=== PATIENT | male | born 1980 | race Caucasian/White ===

== ENCOUNTER 2017-06-03 03:39 | Inpatient (IN) | payer OTHER ==
[~2017-06-03] VITALS: Ht 177.8 cm; Wt 129.7 kg
[2017-06-03 08:00] VITALS: BP 156/94
[2017-06-03 08:10] VITALS: BP 156/94
--- NOTE | 2017-06-03 08:10 | NUR ---
podiatric surgeonhorse doctor notes Admitted a 37 years old male patient from [facility] via gurney accompanied by 2 EMT's, who came in with diagnosis of Pneumonia. Dr. Bauer called and made aware regarding the admission and admission orders and diet ordered. Patient is alert and oriented x 4, verbally responsive and able to make needs known. Skin assessment done and intact. No complaint of pain or discomfort at this time, nor chest pain. on tele monitor SR heart rate of 74. Ambulatory and tolerated well. On room air and tolerated well. Kept patient clean and comfortable in bed, call light with in patient reach, will continue to monitor accordingly.
[2017-06-03] MEDS ORDERED: IV NS 0.9% 1,000 ML IV PRN (08:34)
[2017-06-03] MEDS ORDERED: ONDANSETRON HCL/PF 4 MG/2 ML VIAL IVP PRN (09:00)
[2017-06-03] MEDS ORDERED: MAG HYDROX/AL HYDROX/SIMETH 30 ML UDC PO PRN (09:00)
[2017-06-03] MEDS ORDERED: ACETAMINOPHEN 325 MG TABLET PO PRN (09:00)
[2017-06-03] MEDS ORDERED: Z GUARD REMEDY 2 OZ OINT TP PRN (09:00)
[2017-06-03] MEDS ORDERED: HYDROCODONE/APAP 10/325MG 1 EA TABLET PO PRN (09:00)
[2017-06-03] MEDS: ALBUTEROL FS 2.5 MG/0.5 ML VIAL.NEB NEB SCH ×2 (09:00→11:07)
[2017-06-03] MEDS ORDERED: MAGNESIUM HYDROXIDE 30 ML UDC PO PRN (09:00)
[2017-06-03] MEDS: IPRATROPIUM NEB FS 0.5 MG/2.5 ML AMPUL.NEB NEB SCH ×2 (09:00→11:07)
--- NOTE | 2017-06-03 09:16 | NUR ---
RT NOTE: PATIENT REFUSED TREATMENT. STATES THAT HE'S NOT IN DISTRESS AND WILL TAKE RESPIRATORY TREATMENT LATER. WILL FOLLOW UP WITH PATIENT FOR THE NEXT SCHEDULED TREATMENT.
[2017-06-03] MEDS ORDERED: DEXAMETHASONE SOD PHOSPHATE 10 MG/ML VIAL IV ONE (09:45)
[2017-06-03] MEDS ORDERED: IV SET PRIMARY PUMP SET 1 EA INFUS.SET MC ONE (09:52)
[2017-06-03] MEDS ORDERED: SECONDARY IV SET 1 EA INFUS.SET MC ONE (09:52)
[2017-06-03] MEDS: AZITHROMYCIN 250 MG TABLET PO SCH (10:06)
[2017-06-03 10:39] LABS: BASOPHILS % (AUTO) 0.3 % (0.0-2.0); EOSINOPHILS # (AUTO) 0.2 /CMM (0.0-0.7); HEMATOCRIT 43 % (39-51); HEMOGLOBIN 14.5 g/dL (13.5-17.5); LYMPHOCYTES # (AUTO) 1.7 /CMM (0.8-4.8); LYMPHOCYTES % (AUTO) 20.4 % (20.0-44.0); MEAN CORPUSCULAR HEMOGLOBIN 32 PG (26.0-33.0); MEAN CORPUSCULAR HGB CONC 34 g/dl (31.0-36.0); MEAN CORPUSCULAR VOLUME 93 fL (80-96); MONOCYTES # (AUTO) 0.9 /CMM (0.1-1.30); NEUTROPHILS # (AUTO) 5.5 /CMM (1.8-8.9); NEUTROPHILS % (AUTO) 66.3 % (43.0-81.0); PLATELET COUNT (AUTO) 253 /CMM (150-450); RDW COEFFICIENT OF VARIATION 14.2 (11.5-15.0); WHITE BLOOD COUNT (AUTO) 8.3 K/uL (4.3-11.0)
--- NOTE | 2017-06-03 11:20 | NUR ---
Pt. reports being jittery after treatment. Dr. Bauer is aware and ordered respiratory treatments to be changed to PRN. Nurse (Juliocesar) aware.
[2017-06-03 12:00] VITALS: BP 148/71
[2017-06-03] MEDS: CEFTRIAXONE 2 G in IV D5W 100 ML IV SCH (12:03)
[2017-06-03 13:06] LABS: CALCIUM, SERUM 8.5 mg/dL (8.5-10.1); CREATININE 0.9 mg/dL (0.6-1.3); POTASSIUM 3.7 mmol/L (3.5-5.1)
[2017-06-03] MEDS: ENOXAPARIN SODIUM 40 MG/0.4 ML DISP.SYRIN SQ SCH (14:03)
[2017-06-03 16:00] VITALS: BP 149/88
[2017-06-03] MEDS ORDERED: ALBUTEROL FS 2.5 MG/0.5 ML VIAL.NEB NEB PRN (16:00)
[2017-06-03] MEDS ORDERED: IPRATROPIUM NEB FS 0.5 MG/2.5 ML AMPUL.NEB NEB PRN (16:00)
--- NOTE | 2017-06-03 19:08 | NUR ---
parking lot attendant and cashier closing notes All needs provided, attended and anticipated. kept patient clean and comfortable in bed, call light with in patient reach, endorsed to next shift RN to continue care. On tele monitor SR heart rate of 81. No complaint of pain or discomfort at this time, nor chest pain.
--- NOTE | 2017-06-03 19:40 | NUR ---
MS RN INITIAL NOTES RECEIVED REPORT FROM DAY SHIFT. PT IS SITTING IN CHAIR WITH FAMILY AT BED SIDE. A/O X3, ABLE TO COMMUNICATE NEEDS. IV ACCESS ON LEFT AC WITH NS @75 ML/HR, IV INTACT AND NO SIGNS OF INFILTRATION. CALL LIGHT WITHIN REACH WILL CONTINUE TO MONITOR PT
[2017-06-03 20:00] VITALS: BP 158/92
--- NOTE | 2017-06-03 21:00 | NUR ---
IV FLUIDS IV FLUIDS WERE PUT ON HOLD. LEFT ARM APPEARED TO BE A LITTLE SWOLLEN, PT DENIES PAIN OR DISCOMFORT. PT BELIEVES THIS IS DUE TO RECEIVING SO MUCH FLUIDS THROUGH IV. NO SIGNS OF INFILTRATION, IV IS INTACT. WILL CONTINUE TO MONITOR
--- NOTE | 2017-06-03 21:40 | NUR ---
IV FLUIDS SWELLING IN PTS ARM IS STARTING TO GO DOWN. WILL CONTINUE TO MONITOR
[2017-06-03 22:00] VITALS: BP 158/92
--- NOTE | 2017-06-04 07:08 | NUR ---
MS RN CLOSING NOTES NO SIGNIFICANT CHANGES IN Pt's CONDITION DURING THE NIGHT. NO S/S OF ACUTE DISTRESS OR SOB NOTED. IV FLUIDS REMAIN HELD. ALL NEEDS MET AND ATTENDED TO. SAFETY MEASURES IN PLACE. WILL ENDORSE TO DAYSHIFT.
[2017-06-04 07:20] LABS: HEMATOCRIT 42 % (39-51); HEMOGLOBIN 14.5 g/dL (13.5-17.5); LYMPHOCYTES # (AUTO) 1.4 /CMM (0.8-4.8); LYMPHOCYTES % (AUTO) 11.9 % (20.0-44.0); MEAN CORPUSCULAR HEMOGLOBIN 32 PG (26.0-33.0); MEAN CORPUSCULAR HGB CONC 34 g/dl (31.0-36.0); MEAN CORPUSCULAR VOLUME 93 fL (80-96); MONOCYTES # (AUTO) 0.5 /CMM (0.1-1.30); MONOCYTES % (AUTO) 4.4 % (2.0-12.0); NEUTROPHILS # (AUTO) 9.9 /CMM (1.8-8.9); NEUTROPHILS % (AUTO) 83.7 % (43.0-81.0); PLATELET COUNT (AUTO) 284 /CMM (150-450); RDW COEFFICIENT OF VARIATION 13.8 (11.5-15.0); RED BLOOD CELL COUNT(AUTO) 4.56 MIL/uL (4.5-6.0); WHITE BLOOD COUNT (AUTO) 11.9 K/uL (4.3-11.0)
--- NOTE | 2017-06-04 07:52 | NUR ---
RN MS NOTES RECEIVED PT AWAKE, ALERT AND ORIENTED X3, NO/C/O PAIN OR DISCOMFORTS AT THIS TIME. OBSERVED WITH REDNESS ON LEFT ARM, PATIENT STATED ITS A BIRTHMARK BUT APPEARS TO BE A LITTLE MORE RED THAN USUAL, WILL LET MD KNOW, ON ROOM AIR, BREATHING EVEN AND UNLABORED. PIV TO LEFT AC PATENT AND INTACT, FLUSHES WELL, BED IN LOWEST POSITION AND LOCKED. CALL LIGHT IN REACH WITH SIDE RAILS UPX2. WILL MAINTAIN ALL SAFETY MEASURES AND WILL CONTINUE TO MONITOR PT ACCORDINGLY.
[2017-06-04 08:00] VITALS: BP 155/90
[2017-06-04 08:18] LABS: THYROID STIMULATING HORMONE 0.6 uIU/mL (0.358-3.74)
[2017-06-04 08:19] LABS: BILIRUBIN,TOTAL 0.3 mg/dL (0.2-1.0); CALCIUM, SERUM 8.9 mg/dL (8.5-10.1); CREATININE 0.8 mg/dL (0.6-1.3); MAGNESIUM 2.1 mg/dL (1.8-2.4); PHOSPHORUS 4.3 mg/dL (2.5-4.9); POTASSIUM 3.9 mmol/L (3.5-5.1); TOTAL PROTEIN, SERUM 7.7 g/dL (6.4-8.2)
[2017-06-04] MEDS: AZITHROMYCIN 250 MG TABLET PO SCH (09:06)
[2017-06-04] MEDS: ENOXAPARIN SODIUM 40 MG/0.4 ML DISP.SYRIN SQ SCH (09:12)
[2017-06-04] MEDS: CEFTRIAXONE 2 G in IV D5W 100 ML IV SCH (10:53)
--- NOTE | 2017-06-04 15:00 | NUR ---
RN MS NOTES RECEIVED DISCHARGE ORDER FROM DR. CABRERA, ORDER NOTED AND CARRIED OUT, PATIENT RECEIVED DISCHARGE INSTRUCTIONS AND PRESCRIPTION FOR ANTIBIOTIC, PATIENT VERBALIZED UNDERSTANDING, SKIN ASSESSMENT DONE, SKIN INTACT, NO DISTRESS NOTED, BREATHING EVEN AND UNLABORED, ABLE TO AMBULATE IN THE HALLWAY WITH NO SOB, DENIES PAIN OR DISCOMFORT, ALL NEEDS ATTENDED AND MET, BELONGINGS RECONCILED, ALL DISCHARGE PAPERWORKS SIGNED, AND JUST WAITING FOR HIS FAMILY MEMBER TO PICK HIM UP.
--- NOTE | 2017-06-04 16:34 | NUR ---
MARINE INSULATOR NOTE PATIENT IS ALERT AND ORIENTED, PIV REMOVED, DISCHARGE PAPERWORKS ACCOMPANIED BY MOTHER, LEFT THE FACILITY IN STABLE CONDITION. Addendum: 06/04/17 at 1636 by FRIEDA FISH RN CORRECTION: LEFT THE FACILITY AT 1610.
[2017-06-04] MEDS ORDERED: LACTOBACILLUS RHAMNOSUS GG 1 EACH CAP.SPRINK PO SCH (17:00)
== END 2017-06-04 16:16 | disposition home or self-care (01) | DRG 139 ==
LOC: MED 08:07
PROVIDERS: ADMIT Nurse Practitioner Acute Care; ATTEND Nurse Practitioner Acute Care
DX: J15.9 Unspecified bacterial pneumonia (principal); J96.00 Acute respiratory failure, unspecified whether with hypoxia or hypercapnia
CPT/HCPCS: 36415; 71010-TC; 80048-TC; 80053-TC; 80061-TC; 83735-TC; 84100-TC; 84443-TC; 85025-TC; 87081-TC; 93307-TC; 93970-TC; J0696; J1100; J1650; J7030; J7060; Z7610